=== PATIENT | female | born 1990 | race African-American/Black ===

== ENCOUNTER 2021-06-30 15:48 | Emergency (ER) | payer OTHER ==
[2021-06-30 16:26] VITALS: BP 114/59; PULSE 65; TEMP 98.6; BMI 44.6
== END 2021-06-30 20:00 | disposition home or self-care (01) ==
LOC: JER 15:48
DX: M94.0 Chondrocostal junction syndrome [Tietze] (principal); J06.9 Acute upper respiratory infection, unspecified
CPT/HCPCS: 71046-TC-FY; 93005; 93010; 99285-25; C9803; U0003; U0005